=== PATIENT | female | born 1985 | race Caucasian/White ===

== ENCOUNTER 2022-08-13 02:50 | Inpatient (IN) | payer OTHER ==
[2022-08-13] MEDS ORDERED: BUTORPHANOL TARTRATE 1 MG/ML VIAL IVPB ONE (04:01)
[2022-08-13] MEDS ORDERED: PROMETHAZINE HCL 25 MG/1 ML VIAL IVPUSH ONE (04:01)
[2022-08-13 04:03] LABS: BASO % 0.3 % (0-2.0); EOS % 0.2 % (0-4.5); HEMATOCRIT 34.8 % (32.4-45.2); HEMOGLOBIN 11.8 GM/dL (10.7-15.3); MCH 27.8 pg (25.7-33.7); MCHC 33.9 g/dl (32.0-36.0); MEAN CELL VOLUME 81.9 fl (80-96); MEAN PLT VOLUME 7.3 fl (7.5-11.1); MONO % 4.5 % (3.8-10.2); PLATELET COUNT 212 10^3/uL (134-434); RBC 4.25 M/mm3 (3.60-5.2); RDW 17.1 % (11.6-15.6); WHITE BLOOD COUNT 14.5 K/mm3 (4.0-10.0)
[2022-08-13] MEDS ORDERED: OXYTOCIN 20 UNITS in 0.9% NS 20 UNIT/1,000 ML INFUS.BAG IV ONE (04:05)
[2022-08-13] MEDS ORDERED: LIDOCAINE HCL 1% PRESERVATIVE FREE - 30ML VIAL ONE (04:06)
[2022-08-13 04:13] LABS: INR 0.98 (0.83-1.09); PROTHROMBIN TIME (PATIENT) 11.3 SEC (9.7-13.0)
[2022-08-13] MEDS ORDERED: BUPIVACAINE HCL/PF 0.25% (2.5MG/ML) 10 ML VIAL ONE (04:14)
[2022-08-13 04:15] LABS: ACTIVATED PTT 27.7 SECONDS (25.2-36.5)
[2022-08-13] MEDS ORDERED: ELECTROLYTE-148 SOLN 1,000 ML IV SCH (04:15)
[2022-08-13 04:32] LABS: CALCIUM 8.4 mg/dL (8.5-10.1)
[2022-08-13 04:33] LABS: BLOOD UREA NITROGEN 7.8 mg/dL (7-18)
[2022-08-13 04:36] LABS: CREATININE 0.5 mg/dL (0.55-1.3)
[2022-08-13 05:30] VITALS: BMI 30.8
[2022-08-13] MEDS ORDERED: BENZOCAINE 20% 57 GM BOTTLE TP PRN (05:36)
[2022-08-13] MEDS ORDERED: METHYLERGONOVINE MALEATE 0.2 MG/1 ML AMP IM PRN (05:36)
[2022-08-13] MEDS ORDERED: BENZOCAINE 28 GM HEMORRHOIDAL OINTMENT TP PRN (05:36)
[2022-08-13] MEDS ORDERED: WITCH HAZEL 50% (TUCKS) 40 PAD/JAR PAD TP PRN (05:36)
[2022-08-13] MEDS ORDERED: BISACODYL 10 MG SUPP.RECT RC PRN (05:36)
[2022-08-13] MEDS ORDERED: ACETAMINOPHEN 325 MG TABLET (FP) PO PRN (05:36)
[2022-08-13] MEDS ORDERED: OXYTOCIN 20 UNITS in 0.9% NS 20 UNIT/1,000 ML INFUS.BAG IV SCH (05:45)
[2022-08-13 07:08] LABS: CORD BASE EXCESS -5.9 mmol/L (0-2); CORD HCO3 18.4 mmHg (20-29); CORD PCO2 33.8 mmHg (30-78); CORD pH 7.354 (7.14-7.44)
[2022-08-13] MEDS: SIMETHICONE 80 MG TAB.CHEW (FP) PO PRN (19:06)
[2022-08-13] MEDS: IBUPROFEN 600 MG TABLET (FP) PO PRN (21:48)
[2022-08-14] MEDS: SIMETHICONE 80 MG TAB.CHEW (FP) PO PRN (06:32)
[2022-08-14] MEDS: IBUPROFEN 600 MG TABLET (FP) PO PRN (06:32)
[2022-08-14 09:29] LABS: BASO % 0.4 % (0-2.0); EOS % 0.8 % (0-4.5); HEMATOCRIT 35.5 % (32.4-45.2); HEMOGLOBIN 11.4 GM/dL (10.7-15.3); LYMPH % 24.1 % (8-40); MCH 26.9 pg (25.7-33.7); MCHC 32.2 g/dl (32.0-36.0); MEAN CELL VOLUME 83.5 fl (80-96); MEAN PLT VOLUME 7.9 fl (7.5-11.1); MONO % 3.3 % (3.8-10.2); NEUT % 71.4 % (42.8-82.8); PLATELET COUNT 225 10^3/uL (134-434); RBC 4.25 M/mm3 (3.60-5.2); RDW 17.1 % (11.6-15.6); WHITE BLOOD COUNT 11.9 K/mm3 (4.0-10.0)
[2022-08-14] MEDS ORDERED: SENNOSIDES/DOCUSATE COMBO (SENNA PLUS) TABLET (UD) PO PRN (22:00)
[2022-08-15 10:39] VITALS: BP 105/70; PULSE 75; RESP 18; TEMP 97.8
== END 2022-08-15 14:35 | disposition home or self-care (01) | DRG 560 ==
LOC: JDEL 02:50 → JLDR 03:15 → J3W 06:29
PROVIDERS: ADMIT Obstetrics & Gynecology; ATTEND Obstetrics & Gynecology
PROC: 10E0XZZ Delivery of Products of Conception, External Approach (ICD-10-PCS; principal; 2022-08-13)
PROC: 0HQ9XZZ Repair Perineum Skin, External Approach (ICD-10-PCS; 2022-08-13)
PROC: 0W8NXZZ Division of Female Perineum, External Approach (ICD-10-PCS; 2022-08-13)
DX: O69.81X0 Labor and delivery complicated by cord around neck, without compression, not applicable or unspecified (principal); O70.0 First degree perineal laceration during delivery; Z3A.40 40 weeks gestation of pregnancy; Z37.0 Single live birth
CPT/HCPCS: 36415; 36600; 59409; 80048; 82803; 85025; 85610; 85730; 86780; 86850; 86900; 86901; C9803-CS; U0003; U0005